=== PATIENT | male | born 1995 | race African-American/Black ===

== ENCOUNTER 2018-02-19 19:20 | Emergency (ER) | payer OTHER ==
[~2018-02-19] VITALS: Ht 175.3 cm; Wt 70.3 kg
[2018-02-19] MEDS ORDERED: ACETAMINOPHEN325 M1 PO (19:39)
[2018-02-19] MEDS ORDERED: [UNRECOGNIZED DRUG - REMARK] (19:39)
[2018-02-19 20:15] LABS: URINE BILIRUBIN NEGATIVE (Negative); URINE BLOOD NEGATIVE (Negative); URINE CLARITY CLEAR; URINE COLOR YELLOW; URINE GLUCOSE-RANDOM* NEGATIVE (Negative); URINE KETONES NEGATIVE (Negative); URINE LEUKOCYTES-REFLEX NEGATIVE (Negative); URINE NITRITE-REFLEX NEGATIVE (Negative); URINE PROTEIN (DIPSTICK) NEGATIVE (Negative); URINE UROBILINOGEN 0.2 E.U./dl (0.2-1.0)
[2018-02-19] MEDS ORDERED: IBUPROFEN 800800 M1 PO (21:39)
[2018-02-19 21:45] VITALS: BP 139/88
== END 2018-02-19 21:46 | disposition home or self-care (01) ==
LOC: ER 19:20
PROVIDERS: Emergency Medicine
DX: N50.9 Disorder of male genital organs, unspecified (principal)